=== PATIENT | male | born 1980 | race Caucasian/White ===

== ENCOUNTER → 2020-08-28 | Outpatient (CLI) | payer OTHER ==
[~2020-08-28] MED LIST: ALBUTEROL SULFATE 0.083% 2.5 MG/3 ML INH IH ONE
== END | disposition home or self-care (01) ==
LOC: RESP 10:29
PROVIDERS: ATTEND Orthopaedic Surgery
DX: D86.0 Sarcoidosis of lung (principal)
CPT/HCPCS: 71046; 94060; 94727; 94729